=== PATIENT | male | born 1975 ===

== ENCOUNTER 2020-01-31 13:52 | Emergency (ER) | payer OTHER ==
--- NOTE | 2020-01-31 14:09 | ED ---
Syncope/Near Syncope - HPI Summary HPI Summary: Pt. is a 44 y.o male who presents to the ER for evaluation after a near syncopal episode. Pt. works at [employer] in [place] and states he was pushing a cart when he suddenly started to feel dizzy, light headed, and tunnel vision. Pt. states he felt as though he was going to pass out so he sat down on floor and symptoms shortly passed. Pt. states he did not loose consciousness. Pt. denies having chest pain, SOB, numbness, tingling, weakness. Pt. notes he has been "off " all week but denies fever, cough, sore throat, abd. pain, h/a, V/D. Past hx of HTN and depression. Pt. notes he accidently missed his dose of antidepressant last night but otherwise denies chest in medication. Pt. denies drug use but notes to daily ETOH use and notes a "couple of beers" per night. Sxs are moderate in severity. Pt. feeling back at his baseline in ED. No current modifying factors. Pt. reportedly had an episode of vomiting in ambulance. - History Of Current Complaint Time Seen by Provider: 01/31/20 13:59 Hx Obtained From: Patient - Allergies/Home Medications Allergies/Adverse Reactions: Allergies Allergy/AdvReac Type Severity Reaction Status Date / Time No Known Allergies Allergy Verified 01/31/20 14:10 Home Medications: Home Medications Lisinopril/Hydrochlorothiazide [Lisinopril-Hctz 20-12.5 mg Tab] 1 each PO BID [History Confirmed 01/31/20] Metoprolol Succinate XL TAB* [Toprol XL TAB*] 25 mg PO BID 01/31/20 [History Confirmed 01/31/20] QUEtiapine XR TAB* [Seroquel Xr 50 MG TAB*] 50 mg PO BEDTIME 01/31/20 [History Confirmed 01/31/20] Venlafaxine CAP (NF) [Effexor CAP (NF)] 75 mg PO DAILY 01/31/20 [History Confirmed 01/31/20] PMH/Surg Hx/FS Hx/Imm Hx Previously Healthy: Yes - Family History Known Family History: Positive: Non-Contributory - Social History Occupation: Employed Full-time Lives: With Family Review of Systems Constitutional: Negative Negative: Fever Eyes: Negative ENT: Negative Cardiovascular: Negative Negative: Palpitations, Chest Pain Respiratory: Negative Negative: Shortness Of Breath, Cough Gastrointestinal: Negative Negative: Abdominal Pain, Vomiting, Diarrhea Musculoskeletal: Negative Positive: Syncope. Negative: Headache, Weakness, Paresthesia, Numbness, Slurred Speech All Other Systems Reviewed And Are Negative: Yes Physical Exam Triage Information Reviewed: Yes Vital Signs Reviewed: Yes Appearance: Positive: Well-Appearing - Pt. sitting up in bed in NAD. Skin: Positive: Warm, Dry Head/Face: Positive: Normal Head/Face Inspection Eyes: Positive: Normal, EOMI, STEFFEN Neck: Positive: Supple Respiratory/Lung Sounds: Positive: Clear to Auscultation, Breath Sounds Present. Negative: Rales, Rhonchi, Wheezes Cardiovascular: Positive: Normal, RRR. Negative: Murmur Musculoskeletal: Positive: Normal, Strength/ROM Intact Neurological: Positive: Normal, Alert, Oriented to Person Place, Time, CN Intact II-III, Facial Symmetry Psychiatric: Positive: Affect/Mood Appropriate Procedures - Sedation Patient Received Moderate/Deep Sedation with Procedure: No Diagnostics - Laboratory Result Diagrams: 01/31/20 14:11 01/31/20 14:11 Lab Statement: Any lab studies that have been ordered have been reviewed, and results considered in the medical decision making process. Course/Dx Course Of Treatment: Pt. presenting after a near syncopal episode. He is back to baseline on exam. BP elevated. Afebrile. Pt. notes he has been very stressed at work and not sleeping well. ECG done at 1426 shows a sinus rhythm of 86bpm, normal axisn, no ST elevation or depression, appropriate intervals. CBC unremarkable. ALT minimally elevated. Lactic acid 3.3. Pt. declined IV fluids. Normal orthostatic VS. Pt. low risk based on [place] syncope rules. Pt. requesting to be dc at this time. Results discussed. Advised increase fluids and rest. To f.u with pcp within one week. Will return to er if sxs change or worsen. - Diagnoses Differential Diagnosis/HQI/PQRI: Positive: Dysrhythmia, Hypoglycemia, Hypovolemia, Seizure, Vasovagal Episode Provider Diagnoses: Near syncope Discharge ED - Sign-Out/Discharge Documenting (check all that apply): Patient Departure - Discharge Plan Condition: Improved Disposition: HOME Patient Education Materials: Near Syncope (ED) Referrals: Christian Hahn MD [Primary Care Provider] - Additional Instructions: Schedule a follow up appointment with your PCP within one week for recheck Increase fluids and rest Return to ER for chest pain, difficulty breathing, passing out, or if concerned - Billing Disposition and Condition Condition: IMPROVED Disposition: Home - Attestation Statements Provider Attestation: I was available for consult. This patient was seen by the [facility]. The patient was not presented to, seen by, or examined by me. Vahid Keith MD
[2020-01-31 14:27] LABS: ABS Basophils 0.1 10^3/ul (0-0.2); ABS Eosinophils 0.1 10^3/ul (0-0.6); ABS Lymphocytes 1.8 10^3/ul (1.0-4.8); ABS Monocytes 0.7 10^3/ul (0-0.8); ABS Neutrophils 4.6 10^3/ul (1.5-7.7); Eosinophil % 1.2 %; Hematocrit 46 % (42-52); Mean Corpuscular HGB Conc 35 g/dL (31-36); Mean Corpuscular Hemoglobin 32 pg (27-31); Mean Corpuscular Volume 92 fL (80-94); Mean Platelet Volume 7.2 fL (7.4-10.4); Platelet Count 335 10^3/uL (150-450); Red Cell Distribution Width 13 % (10-15); White Blood Count 7.4 10^3/uL (3.5-10.8)
[2020-01-31 15:04] LABS: Albumin 4.5 g/dL (3.2-5.2); Albumin/Globulin Ratio 1.5 (1-3); BUN/Creatinine Ratio 9.5 (8-20); EGFR African American 92.4 (>60); EGFR Non-African American 76.4 (>60); Globulin 3.1 g/dL (2-4); Magnesium 1.9 mg/dL (1.9-2.7); Potassium 3.8 mmol/L (3.5-5.0); Total Bilirubin 0.4 mg/dL (0.2-1.0); Total Protein 7.6 g/dL (6.4-8.9)
[2020-01-31 15:14] LABS: TSH (Thyroid Stimulating Horm) 1.3 mcIU/mL (0.34-5.60)
[2020-01-31] MEDS ORDERED: NS 0.9% 1000 ML** 1,000 ML IV ONE (15:25)
[2020-01-31 16:21] LABS: Urine Appearance Clear; Urine Bilirubin Negative (Negative); Urine Blood Negative (Negative); Urine Color Yellow; Urine Glucose Negative (Negative); Urine Ketones Negative (Negative); Urine Nitrite Negative (Negative); Urine Protein Negative (Negative); Urine Specific Gravity 1.014 (1.010-1.030); Urine Urobilinogen Negative (Negative)
[2020-01-31 16:44] VITALS: BP 129/88
== END 2020-01-31 16:47 | disposition home or self-care (01) ==
LOC: ED 13:52
DX: R55 Syncope and collapse (principal); I10 Essential (primary) hypertension; F32.9 Major depressive disorder, single episode, unspecified; Z79.899 Other long term (current) drug therapy
CPT/HCPCS: 36415; 80053; 81003; 83605; 83735; 84443; 84484; 85025; 93005; 99283